=== PATIENT | male | born 1955 | race Caucasian/White ===

== ENCOUNTER 2025-02-03 09:07 | Outpatient (CLI) | payer MEDICARE | END 2025-02-03 09:08 | disposition home or self-care (01) | LOC: BICMRI 09:07 | PROVIDERS: ATTEND Family Medicine | DX: M54.16 Radiculopathy, lumbar region (principal); M48.061 Spinal stenosis, lumbar region without neurogenic claudication; M48.07 Spinal stenosis, lumbosacral region | CPT/HCPCS: 72148 ==